=== PATIENT | male | born 1950 | race Caucasian/White ===

== ENCOUNTER → 2016-07-12 | Outpatient (CLI) | payer OTHER, BC ==
[~2016-07-12] MED LIST: ASPEC81 PO; CPR500 PO; HYDC25 PO; LISI-461 PO; SIMV20TA2 PO
[2016-07-12 12:26] LABS: BASO % 0.5 %; BASO ABS # 0.03 K/uL (0-0.2); COMPLETE YES; EOS % 4.1 %; IG% 0.2 %; LYMPH % 28.4 %; LYMPH ABS # 1.61 K/uL (1.2-3.4); MEAN CELL VOLUME 91.5 fL (80-100); MEAN CORPUSCULAR HEMOGLOBIN 32.8 pg (25-34); MEAN CORPUSCULAR HGB CONC 35.9 g/dl (32-36); MEAN PLATELET VOLUME 10.6 fL (7.4-10.4); NEUT % 54.8 %; PLATELET COUNT 189 K/uL (130-400); RED BLOOD COUNT 5.03 M/uL (4.7-6.1); WHITE BLOOD COUNT 5.67 K/uL (4.8-10.8)
[2016-07-12 12:28] LABS: URINE APPEARANCE CLEAR (CLEAR); URINE BILIRUBIN NEG (NEG); URINE COLOR YELLOW; URINE EPITHELIAL CELL AUTO 0-5 /lpf (0-5); URINE NITRITE NEG (NEG); URINE SPECIFIC GRAVITY 1.019 (1.000-1.030); UROBILINOGEN NEG (NEG); ZZUR CULT IF INDIC CLEAN CATCH NO
[2016-07-12 12:38] LABS: ALT/SGPT 26 U/L (12-78); BLOOD UREA NITROGEN 17 mg/dl (7-18); BUN/CREATININE RATIO 15.6 (10-20); CALCIUM 8.8 mg/dl (8.5-10.1); CARBON DIOXIDE 27 mmol/L (21-32); CHLORIDE 105 mmol/L (98-107); CHOLESTEROL 134 mg/dl (0-200); GLUCOSE 84 mg/dl (70-99); SODIUM 142 mmol/L (136-145)
[2016-07-12 12:41] LABS: ALB/GLOB RATIO 1.2 (0.9-2); ALKALINE PHOSPHATASE 85 U/L (45-117); AST/SGOT 24 U/L (15-37); CHOLESTEROL/HDL RATIO 2.6; HDL CHOLESTEROL 51 mg/dl; LDL CHOLESTEROL CALCULATED 63 mg/dl; TRIGLYCERIDES 101 mg/dl (0-150); VERY LOW DENSITY LIPOPROT CALC 20 mg/dl
[2016-07-12 12:41] LABS: MANUAL MICROSCOPIC REQUIRED? NO; REVIEW REQ? NO
== END | disposition home or self-care (01) ==
LOC: C.LABBFT 07:39
PROVIDERS: ATTEND Internal Medicine
DX: R97.20 Elevated prostate specific antigen [PSA] (principal); E78.5 Hyperlipidemia, unspecified

== ENCOUNTER → 2017-06-17 | Outpatient (CLI) | payer OTHER, BC ==
[2017-06-17 12:30] LABS: BASO % 0.3 %; BASO ABS # 0.02 K/uL (0-0.2); EOS % 2.2 %; EOS ABS # 0.13 K/uL (0-0.5); HEMATOCRIT 46.7 % (42-52); HEMOGLOBIN 16.7 g/dL (14.0-18.0); IG# 0.01 K/uL (0.00-0.02); LYMPH % 26.4 %; LYMPH ABS # 1.56 K/uL (1.2-3.4); MEAN CELL VOLUME 92.8 fL (80-100); MEAN CORPUSCULAR HEMOGLOBIN 33.2 pg (25-34); MEAN CORPUSCULAR HGB CONC 35.8 g/dl (32-36); MEAN PLATELET VOLUME 10.3 fL (7.4-10.4); MONO % 8.8 %; MONO ABS # 0.52 K/uL (0.11-0.59); NEUT % 62.1 %; NEUT ABS # 3.67 K/uL (1.4-6.5); PLATELET COUNT 171 K/uL (130-400); RED CELL DISTRIBUTION WIDTH CV 12.9 % (11.5-14.5); RED CELL DISTRIBUTION WIDTH SD 43.6 fL (36.4-46.3); WHITE BLOOD COUNT 5.91 K/uL (4.8-10.8)
[2017-06-17 13:00] LABS: ALBUMIN 3.7 gm/dl (3.4-5.0); ALT/SGPT 23 U/L (12-78); BLOOD UREA NITROGEN 19 mg/dl (7-18); CALCIUM 9.3 mg/dl (8.5-10.1); CARBON DIOXIDE 30 mmol/L (21-32); CHOLESTEROL 148 mg/dl (0-200); GLUCOSE 87 mg/dl (70-99); SODIUM 141 mmol/L (136-145)
[2017-06-17 13:03] LABS: ALKALINE PHOSPHATASE 71 U/L (45-117); AST/SGOT 23 U/L (15-37); LDL CHOLESTEROL CALCULATED 78 mg/dl
== END | disposition home or self-care (01) ==
LOC: C.LABBFT 08:53
PROVIDERS: ATTEND Internal Medicine
DX: I10 Essential (primary) hypertension (principal); E78.5 Hyperlipidemia, unspecified

== ENCOUNTER 2024-06-18 05:17 | Observation (INO) ==
--- NOTE | 2024-05-13 13:46 | PAT Medication Instructions ---
Medication Instructions Date of Service May 13, 2024 Home Medications Medication Instructions Recorded hydrochlorothiazide 25 mg tablet 25 mg PO QAM #90 tabs 07/31/23 diclofenac sodium 1 % topical gel 4 g topical QID PRN arthralgias 11/20/23 (Aleve (diclofenac)) #100 grams lorazepam 0.5 mg tablet 0.5 mg PO DAILY PRN anxiety #30 11/20/23 tabs lisinopril 10 mg tablet 10 mg PO .COMPLEX #180 tabs 01/26/24 simvastatin 20 mg tablet 20 mg PO QPM #90 tabs 04/27/24 finasteride 5 mg tablet 5 mg PO QAM famotidine 20 mg tablet 20 mg PO BID PRN heartburn alfuzosin 10 mg tablet,extended release 24 hr 10 mg PO QPM aspirin 81 mg tablet,delayed release (Deshaun Low Dose Aspirin) 81 mg PO QAM acetaminophen 325 mg tablet (Tylenol) 325 mg PO QID PRN Pain hydrochlorothiazide 25 mg tablet 25 mg PO QAM diclofenac sodium 1 % topical gel (Aleve (diclofenac)) 4 g topical QID PRN arthralgias lorazepam 0.5 mg tablet 0.5 mg PO DAILY PRN anxiety lisinopril 10 mg tablet 10 mg PO .COMPLEX simvastatin 20 mg tablet 20 mg PO QPM Continue as directed lorazepam 0.5 mg tablet 0.5 mg PO DAILY PRN anxiety (if needed) STOP taking 24 hours before surgery diclofenac sodium 1 % topical gel (Aleve (diclofenac)) 4 g topical QID PRN arthralgias DO NOT take the morning of surgery hydrochlorothiazide 25 mg tablet 25 mg PO QAM lisinopril 10 mg tablet 10 mg PO .COMPLEX Take morning of surgery With a small sip of water, OTHERWISE NOTHING TO EAT OR DRINK AFTER MIDNIGHT: finasteride 5 mg tablet 5 mg PO QAM famotidine 20 mg tablet 20 mg PO BID PRN heartburn (if needed) aspirin 81 mg tablet,delayed release (Deshaun Low Dose Aspirin) 81 mg PO QAM (unless surgeon directed otherwise) acetaminophen 325 mg tablet (Tylenol) 325 mg PO QID PRN Pain (if needed) Take evening before surgery famotidine 20 mg tablet 20 mg PO BID PRN heartburn (if needed) alfuzosin 10 mg tablet,extended release 24 hr 10 mg PO QPM acetaminophen 325 mg tablet (Tylenol) 325 mg PO QID PRN Pain (if needed) simvastatin 20 mg tablet 20 mg PO QPM Other Notes If you have any questions please call us at [phone] or [phone] or [phone] or [phone]
--- NOTE | 2024-05-20 09:38 | Anesthesiology Consultation ---
Date of Service May 20, 2024 Assessment & Plan (1) Encounter for pre-operative examination: - Infectious disease screening: Per assessment on 05/20/24- No known recent infectious disease contacts or current infectious disease symptoms. - Outpatient joint assessment: Pt currently scheduled for inpatient pathway. If surgeon requests review for outpatient joint pathway, patient is an acceptable candidate for outpatient joint program from anesthesia standpoint pending surgeon's office assessment that patient is motivated, has good support and completes Same Day Joint Program preop requirements. Chart Review Chart Review: Acceptable Risk for Surgery (pending CXR) and Patient seen in Pre Admission Testing Teaching & Discussion Pre-Anesthesia Teaching/Discussion Notes: Instructed NPO after midnight before surgery,except medications with 15 cc of water. Medication instructions provided according to the PAT guidelines. History Surgery Operation Date: 06/18/24 11:55 Proposed Procedures p Right Total Hip Arthroplasty Anterior - Paco Vences DO Height/Weight Height: 6 ft Weight: 82.7 kg Allergies Allergy/AdvReac Type Severity Reaction Status Date / Time No Known Drug Allergies Allergy Unknown Verified 05/13/24 10:19 Medications Home Medications Medication Instructions Recorded Confirmed Last Taken finasteride 5 mg tablet 5 mg PO QAM 07/28/18 05/13/24 10/28/21 famotidine 20 mg tablet 20 mg PO BID PRN heartburn 01/04/19 05/13/24 10/27/21 alfuzosin 10 mg tablet,extended 10 mg PO QPM 02/08/20 05/13/24 10/27/21 release 24 hr aspirin 81 mg tablet,delayed 81 mg PO QAM 12/03/20 05/13/24 10/28/21 release (Deshaun Low Dose Aspirin) acetaminophen 325 mg tablet 325 mg PO QID PRN Pain 10/28/21 05/13/24 10/28/21 08:00 (Tylenol) 325 mg hydrochlorothiazide 25 mg tablet 25 mg PO QAM #90 tabs 07/31/23 05/13/24 Unknown diclofenac sodium 1 % topical gel 4 g topical QID PRN arthralgias 11/20/23 05/13/24 Unknown (Aleve (diclofenac)) #100 grams lorazepam 0.5 mg tablet 0.5 mg PO DAILY PRN anxiety #30 11/20/23 05/13/24 Unknown tabs lisinopril 10 mg tablet 10 mg PO .COMPLEX #180 tabs 01/26/24 05/13/24 Unknown simvastatin 20 mg tablet 20 mg PO QPM #90 tabs 04/27/24 05/13/24 Unknown Past Medical History Medical History Arthritis BPH (benign prostatic hyperplasia) GERD (gastroesophageal reflux disease) History of COVID-19 (05/2023) Symptoms resolved HTN (hypertension) Hyperlipidemia Inguinal hernia Exercise / Class Metabolic Activity II 4-5 Yardwork/Stairs/Walk up hill (one FS: No CP, no SOB) Past Family History Family History Father Cancer Unknown primary- age 87. Mother Parkinsons disease Sister Hypertension Other No family history of adverse response to anesthesia No pertinent family history Denies family history of Ovarian cancer Prostate cancer Myocardial infarction Breast cancer Colorectal cancer Past Surgical History Surgical History H/O cataract extraction Right eye History of colonoscopy History of hand surgery Finger fracture repair (2017) History of prostate biopsy x2 ("benign") History of surgery For dupuytren's contracture History of tonsillectomy History of tooth extraction Past Anesthesia History No Hx of Anesthesia Complications and No Family Hx of Anesthesia Complications History of PONV No Hx of PONV and Hx of Motion Sickness Social History Smoking Status: Never smoker Do You Dip or Chew Tobacco: No Hx Alcohol Use: Yes alcohol intake frequency: 0-2 drinks per day (2 drinks/day) Hx Substance Use: No substance use type: does not use Review of Systems Patient denies chest pain, shortness of breath, dyspnea on exertion, fever, chills, cough, wheezing. Physical Exam Vital Signs BP 124/75 P 67 TEMP 97.8 SP02 98%RA RESP 16 Physical Full cervical extension range of motion. Full TMJ range of motion. TMD > 3.5 finger breaths Mallampati Score III Dentition: missing molar, + crown Lungs: clear throughout to auscultation Cardiac: regular rate and rhythm, no murmurs noted Spine: normal Carotid arteries: negative bruit Extremities: no LE edema Lab Results Anesthesia Preop Results Results Anesthesia Widget: WBC 5.42 K/ul (4.8-10.8) 05/20/24 Hgb 15.5 g/dl (14.0-18.0) 05/20/24 Hct 43.5 % (42.0-52.0) 05/20/24 Plt 189 K/uL (130-400) 05/20/24 Na 141 mmol/L (136-145) 05/20/24 K 4.1 mmol/L (3.5-5.1) 05/20/24 Cl 107 mmol/L (98-107) 05/20/24 CO2 26 mmol/L (21-32) 05/20/24 BUN 26 mg/dl (6-23) H 05/20/24 Creat 1.07 mg/dl (0.6-1.4) 05/20/24 Glucose Level 96 mg/dl (70-99(Fasting)) 05/20/24 PT 11.7 Seconds (9.0-12.0) 05/20/24 PTT 26 Seconds (21-31) 05/20/24 INR 1.1 (0.9-1.1) 05/20/24 Blood Type O Positive 05/20/24 Antibody Screen NEGATIVE 05/20/24 Testing Electrocardiogram Date: 05/20/24 NSR at 62bpm. Rightward axis. iRBBB. Septal infarct (cited on or before 04/28/2018). Echocardiogram Date: 08/22/20 EF 60-65%. Normal wall motion. Mild cLVH. Mild TR. Grade I DD.
--- NOTE | 2024-06-17 13:13 | History & Physical Report ---
Date of Service June 17, 2024 Assessment & Plan (1) Arthritis of right hip: We will proceed with a right anterior total of arthroplasty. Postoperatively he will be started on aspirin for DVT prophylaxis and kept overnight in the hospital for postop medical management. He plans to use energy physical therapy upon discharge. History of Present Illness Chief Complaint: Arthritis of the right hip. Primary Care Provider: Greg Keyes MD Lupillo is a pleasant 74-year-old male who has been dealing with chronic increasing right hip pain. He hasbeen seeing one of my partners. He isstruggling more with his hip. He hasbeen diagnosed with advanced arthritis. He hasbeen limping a lot over the last year. He ishaving trouble sleeping at night. He had an injection with minimal relief. He did physical therapy back in June without relief. After failing conservative treatment, he has elected to proceed with a right anterior total arthroplasty. Allergies Allergy/AdvReac Type Severity Reaction Status Date / Time No Known Drug Allergies Allergy Unknown Verified 05/13/24 10:19 Home Medications Medication Instructions Recorded Confirmed Type finasteride 5 mg tablet 5 mg PO QAM 07/28/18 05/13/24 History famotidine 20 mg tablet 20 mg PO BID PRN heartburn 01/04/19 05/13/24 History alfuzosin 10 mg tablet,extended 10 mg PO QPM 02/08/20 05/13/24 History release 24 hr aspirin 81 mg tablet,delayed 81 mg PO QAM 12/03/20 05/13/24 History release (Deshaun Low Dose Aspirin) acetaminophen 325 mg tablet 325 mg PO QID PRN Pain 10/28/21 05/13/24 History (Tylenol) hydrochlorothiazide 25 mg tablet 25 mg PO QAM #90 tabs 07/31/23 05/13/24 Rx diclofenac sodium 1 % topical gel 4 g topical QID PRN arthralgias 11/20/23 05/13/24 Rx (Aleve (diclofenac)) #100 grams lorazepam 0.5 mg tablet 0.5 mg PO DAILY PRN anxiety #30 11/20/23 05/13/24 Rx tabs lisinopril 10 mg tablet 10 mg PO .COMPLEX #180 tabs 01/26/24 05/13/24 Rx simvastatin 20 mg tablet 20 mg PO QPM #90 tabs 04/27/24 05/13/24 Rx Past Med/Surg History Problem List Arthritis of right hip Encounter for pre-operative examination GERD (gastroesophageal reflux disease) (Acute) Benign prostatic hyperplasia with elevated prostate specific antigen (PSA) (Chronic) Elevated prostate specific antigen (PSA) (Acute) Hyperlipidemia (Chronic) Hypertension (Chronic) Inguinal hernia (Acute) Male erectile disorder of organic origin (Acute) Medical History Inguinal hernia HTN (hypertension) Hyperlipidemia BPH (benign prostatic hyperplasia) GERD (gastroesophageal reflux disease) Arthritis History of COVID-19 (05/2023) Symptoms resolved Surgical History History of surgery For dupuytren's contracture History of prostate biopsy x2 ("benign") History of colonoscopy History of tooth extraction H/O cataract extraction Right eye History of tonsillectomy History of hand surgery Finger fracture repair (2018) Family History Father Cancer Unknown primary- age 87. Mother Parkinsons disease Sister Hypertension Other No family history of adverse response to anesthesia No pertinent family history Denies family history of Ovarian cancer Prostate cancer Myocardial infarction Breast cancer Colorectal cancer Social History Smoking Status: Never smoker Second Hand Exposure: No; Do You Dip or Chew Tobacco: No; Tobacco Cessation Education Requested by Patient: No Hx Alcohol Use: Yes Alcohol type: beer Alcohol type Comment: about 2 drinks per night. Hx Substance Use: No Preferred Language: Djib[place]ian Communication Ability: Effective Visual Impairment: No Limitations Hearing Ability: Normal Molder Vacuum Required: No Beliefs That Will Affect Care: None marital status: Single Current Living Situation: Alone current occupational status: retired current occupation: [employer], retired 2010 Other Information That Helps Us Care for You: No Feels Safe at Home: Yes Safety Concerns: Feels Safe At This Time Childhood Exposure to Second-Hand Smoke: No Diet: regular caffeine: Yes Dental Care, Regularly: Yes Physical Activity Frequency: 3-4 Times per Week Physical Activity Frequency Comment: walks, outdoor work, 30 mins Seatbelt Use: always Sunscreen Use: No Assistive Devices: Glasses Review of Systems All systems reviewed & are unremarkable except as noted in HPI & below. Physical Exam On physical exam of the right hip, he has decreased range of motion. He has pain with internal/external rotation. All of his pain is located in the groin.. Constitutional WD/WN, vitals as above Eyes PERRL, conjunctivae normal, anicteric sclerae ENMT external ear and nose normal, oropharynx normal Neck trachea midline, no thyromegaly Respiratory normal respiratory effort Cardiovascular RRR, no murmur, no edema Gastrointestinal (Abdomen) normal bowel sounds, soft, nontender, no hepatosplenomegaly Psychiatric A+Ox3, euthymic affect Results & Data Results & Data Laboratory Results . Diagnostic Findings X-rays of the right hip show advanced osteoarthritis with joint space narrowing, osteophyte formation, and [id number] articulation. PG Care Time/CCT Total # of Minutes Spent Total Time Spent with Patient: Total time spent is greater than 50% in coordination of care (as documented) at patient's floor/unit and/or counseling patient: Coding Level of Care Code None Diagnoses Arthritis of right hip M16.11
[2024-06-18] MEDS: LR 500ML BOLUS, THEN 15ML/HR IV SCH (06:00)
[2024-06-18] MEDS: GABAPENTIN 300 MG CAP PO SCH (06:05)
[2024-06-18] MEDS: FAMOTIDINE 20 MG TAB PO SCH (06:05)
[2024-06-18] MEDS: dexAMETHasone**PF** 10 MG/ML VIAL IV SCH (06:05)
[2024-06-18] MEDS: ACETAMINOPHEN 500 MG TAB PO SCH ×2 (06:05→15:16)
[2024-06-18] MEDS: LR 60ML/HR IV SCH (06:06)
[2024-06-18] MEDS ORDERED: BUPIVACAINE 0.5 % 5 MG/1 ML PF 10ML VIAL ONE (06:19)
[2024-06-18] MEDS ORDERED: MIDAZOLAM HCL 1 MG/ML 2ML VIAL ONE (06:36)
[2024-06-18] MEDS ORDERED: PHENYLEPHRINE HCL 10 MG/ML VIAL ONE (06:38)
--- NOTE | 2024-06-18 06:38 | History & Physical Bridge Note ---
Date of Service June 18, 2024 History & Physical Bridge Note I have examined the patient, reviewed the History & Physical and in the interval since the performance of the History & Physical I have noted the following changes of clinical significance: no changes noted
[2024-06-18] MEDS ORDERED: PROPOFOL IV EMULSION 10 MG/ML 20 ML VIAL IV ONE (06:40)
[2024-06-18] MEDS ORDERED: ONDANSETRON INJ 2 MG/ML 2 ML VIAL ONE (06:46)
[2024-06-18] MEDS ORDERED: LIDOCAINE 2% 2 ML VIAL/AMP(20MG/ML) INFIL ONE (06:47)
[2024-06-18] MEDS: TRANEXAMIC ACID 1,000 MG **IV Pre-op IV SCH (06:53)
[2024-06-18] MEDS ORDERED: fentaNYL citrate PF 100 MCG/2 ML VIAL ONE (06:59)
[2024-06-18] MEDS ORDERED: ePHEDrine sulfate 50 MG/ML AMP IV PRN (07:05)
[2024-06-18] MEDS ORDERED: ONDANSETRON INJ 2 MG/ML 2 ML VIAL IV PRN ×2 (07:05→09:39)
[2024-06-18] MEDS ORDERED: PROMETHAZINE HCL 6.25 MG in SODIUM CHLORIDE 0.9% 50 ML IV PRN (07:05)
[2024-06-18] MEDS ORDERED: fentaNYL citrate PF 100 MCG/2 ML VIAL IV PRN (07:05)
[2024-06-18] MEDS: ceFAZolin 2000MG 2,000 MG/15 ML SYR IV SCH (07:05)
[2024-06-18] MEDS ORDERED: ATROPINE SULFATE 0.1 MG/ML 10ML SYR IV PRN (07:05)
[2024-06-18] MEDS ORDERED: ePHEDrine sulfate 50 MG/ML AMP ONE (07:36)
[2024-06-18] MEDS: TRANEXAMIC ACID 1,000 MG **IV Intra-op IV SCH (07:58)
[2024-06-18] MEDS: ORTHO JOINT ANESTHETIC ONE (08:01)
[2024-06-18] MEDS: ROPIV 0.5% 246mg, Ketorolac 30mg, EPINEPHrine 0.5mg in NSS INFIL SCH (08:01)
--- NOTE | 2024-06-18 08:04 | Operative Report ---
PG Post Operative Report Pre & Post Diagnosis Operation Date: 06/18/24 07:00 Pre-Op Diagnosis: Rigth Hip Arthrtitis Post-Op Diagnosis: Rigth Hip Arthrtitis I identified the patient and participated in the time-out.: Yes Procedure Operation Date: 06/18/24 07:00 Actual Procedures p Right Anterior Total Hip Arthroplasty(Right) - Paco Vences DO Surgeon Paco Vences DO Home Health Care Respiratory Therapist Rogerio Porras PA-C Estimated Blood Loss 200 Findings Consistent with Post-Op Diagnosis Specimens Right femoral head Description of Procedure Implants used I used a ZimmerBiomet total hip arthroplasty system with a size 5 high offset Avenir Complete stem, a 56 mm G7 cup with a 25mm screw, an E1 polyethylene liner, a 40 mm ceramic head with a +3.5 neck. Lupillo arrived at the hospital for the above procedure. He was seen in the preoperative holding area and the operative extremity was identified and signed. He was given a spinal anesthetic, a preoperative antibiotic, and TXA. He was then taken back to the operating room and laid on the table in the supine position. He was given basic sedation. The operative leg was secured to a Puristst leg positioner. The hip was then prepped and draped in sterile fashion. A timeout was done and the patient and the operative extremity was properly identified. An anterior approach was used. Dissection was taken down through the fascia and the tensor muscle belly was retracted laterally and the rectus was retracted medially. The circumflex vessels were identified and ligated. The capsule was then incised and tagged for later repair. The femoral neck was then cut and the femoral head was removed. The acetabulum was exposed. Time was spent doing a complete circumferential labral release. Sequential reaming of the acetabulum up to a size 55 reamer was done. Final reamings were done under fluoroscopy to ensure appropriate version. A Biomet 56 mm G7 cup was then impacted into place. A single 25 mm screw was placed. The E1 polyethylene liner was then snapped into place. Surrounding soft tissues were then injected with 100 cc of an orthopedic pain control cocktail. The proximal femur was then exposed. Sequential broaching up to a size 5 broach was done. Off that broach a size 40 head with a +3.5 neck was trialed. The hip was reduced and fluoroscopic images showed anatomic alignment of the implants in acceptable length. The broach was removed. The final size 5 high offset Avenir Complete stem was then impacted into place. A ceramic 40 mm head with a +2.5 neck was then impacted onto the stem and the hip was reduced. Final fluoroscopic images showed anatomic alignment of the hip. The capsule was then closed with #1 Vicryl suture. A dilute betadyne lavage was then done for 3 minutes. The joint was then irrigated with normal saline solution. The fascia was closed with #1 PDS suture. Skin was closed with 2-0 Vicryl, sj, and a Silverlon dressing. He was then transferred to a hospital bed and taken to the post anesthesia care unit in stable condition. He tolerated the procedure well. Rogerio Porras PA-C, was present for the entire procedure. He was critical for patient positioning, prepping, draping, retraction exposure, wound closure and application of sterile dressing. I attest to the content of the Intraoperative Record and any orders documented therein. Any exceptions are noted below.
--- NOTE | 2024-06-18 08:46 | Fluoroscopy Report ---
FL hip RT 1V CLINICAL HISTORY: RT ANTERIOR MYNOR TECHNIQUE: 1 views were obtained with the C-arm in the OR with the above procedure. Total fluoroscopy time was 8.3 seconds. Radiation dose was 2 mGy. Comparison: Comparison is made to hip radiograph 05/23/2023 FINDINGS/IMPRESSION: Intraoperative images were obtained of the right anterior arthroplasty. Please correlate with intraoperative fluoroscopy and operative report. ACT 112: Negative or not required by law. Electronically signed by: Kyler Sims M.D. 06/18/2024 8:44 AM
--- NOTE | 2024-06-18 09:12 | XRay Report ---
XR hip 1V RT w pelvis HISTORY: 74 years-old Male IN PACU - Post Surgical COMPARISON: Hip radiograph 05/23/2023 TECHNIQUE: AP view the pelvis with crosstable lateral view of the right hip FINDINGS: Moderate osteoarthritis of the left hip. Satisfactory alignment of the right hip arthroplasty with la teral skin sj, expected postoperative soft tissue swelling with deep tissue air. IMPRESSION: Satisfactory alignment of the right hip arthroplasty. ACT 112: Negative or not required by law. The above report was generated using voice recognition software. It may contain grammatical, syntax o r spelling errors. Electronically signed by: Gavin Kaur M.D. 06/18/2024 9:10 AM
--- NOTE | 2024-06-18 09:16 | Anesthesiology Progress Note ---
Date of Service June 18, 2024 Anesthesia Post Procedure Vital Signs Vital Signs: Temp Pulse Resp BP Pulse Ox O2 Del Method O2 Flow Rate 06/18/24 09:05 86 14 114/60 95 Room Air 06/18/24 08:55 83 14 120/60 95 Room Air 06/18/24 08:45 90 16 104/67 97 Room Air 06/18/24 08:35 92 H 16 112/58 L 97 Oxymask 5 06/18/24 08:26 36.3 C L 93 H 18 119/60 97 Oxymask 5 06/18/24 05:43 36.9 C 94 H 18 144/81 H 94 Room Air Transfer of Care Handoff Completed per policy Notes Mental Status: alert / awake / arousable Patient Amnestic to Procedure: Yes Nausea / Vomiting: adequately controlled Pain: adequately controlled Airway Patency, RR, SpO2: stable & adequate BP & HR: stable & adequate Hydration State: stable & adequate Neuraxial Anesthesia: was administered and sensory block is resolving Anesthetic Complications: no major complications apparent and Pt Satisfied with anesthetic care
[2024-06-18] MEDS ORDERED: METOCLOPRAMIDE HCL INJ 5 MG/ML 2 ML VIAL IV PRN (09:39)
[2024-06-18] MEDS ORDERED: traMADol HCL 50 MG TABLET PO PRN (09:39)
[2024-06-18] MEDS ORDERED: HYDROmorphone INJ 0.5 MG/0.5 ML SYR IV PRN (09:39)
[2024-06-18] MEDS ORDERED: bisacodyL 10 MG SUPP PR PRN (09:39)
[2024-06-18] MEDS ORDERED: FAMOTIDINE 20 MG TAB PO PRN (09:39)
[2024-06-18] MEDS ORDERED: MAGNESIUM HYDROXIDE SUSP 30 ML UDC PO PRN (09:39)
[2024-06-18] MEDS ORDERED: oxyCODONE HCL IR 5 MG TAB (IMMEDIATE RELEASE) PO PRN (09:39)
[2024-06-18] MEDS ORDERED: NALOXONE HCL 0.4 MG/1 ML VIAL/CARP IV PRN (09:39)
[2024-06-18] MEDS: KETOROLAC TROMETHAMINE 15 MG/ML VIAL IV SCH (10:45)
[2024-06-18] MEDS: MULTIVITAMIN TAB PO SCH (10:45)
[2024-06-18] MEDS: ASPIRIN 81 MG ECTAB PO SCH (10:45)
[2024-06-18] MEDS: DOCUSATE SODIUM 100 MG CAP PO SCH (10:45)
[2024-06-18] MEDS: hydroCHLOROthiazide 25 MG TAB PO SCH (10:45)
[2024-06-18] MEDS: FINASTERIDE 5 MG TAB PO SCH (11:13)
[2024-06-18] MEDS: ceFAZolin 1000MG 1,000 MG/7.5 ML SYR IV SCH (15:16)
[2024-06-18] MEDS: lisinopril 10 MG TAB PO SCH (16:22)
[2024-06-18] MEDS: TAMSULOSIN HCL 0.4 MG CAP PO SCH (20:36)
[2024-06-18] MEDS: SIMVASTATIN 20 MG TAB PO SCH (20:36)
[2024-06-18] MEDS: SENNA 8.6 MG TAB PO SCH (20:38)
[2024-06-19] MEDS: LORazepam 0.5 MG TAB PO PRN (00:05)
[2024-06-19 03:32] VITALS: PULSE 71; TEMP 97.9
[2024-06-19 07:23] VITALS: BP 118/65; RESP 16; O2SAT 98
--- NOTE | 2024-06-19 07:27 | Orthopedic Progress Note ---
Date of Service June 19, 2024 Assessment & Plan (1) Status post right hip replacement: Overall he is doing very well. He is not having much pain in the right hip. He has been up and ambulating to the bathroom. He will be seen by physical therapy today for ambulation and range of motion exercises. He is on aspirin for DVT prophylaxis. He can be discharged to home later today. He will follow-up with orthopedics in 2 weeks. Bebo Wesley was seen and examined at bedside this morning. Overall he is doing fairly well. He is not having too much pain in the right hip. He is been up and ambulating to the bathroom. He has no complaints.. Review of Systems All systems reviewed & are unremarkable except as noted in HPI & below. Physical Exam On physical exam of the right hip, the dressing is clean and dry. His leg is out full extension. He has active dorsiflexion plantarflexion of his right ankle.. Results & Data Results & Data Laboratory Results . Diagnostic Findings Postoperative x-rays of the right hip show the prosthesis to be in anatomic alignment without any evidence of fracture complication, or loosening.. PG Care Time/CCT Total # of Minutes Spent Total Time Spent with Patient: Total time spent is greater than 50% in coordination of care (as documented) at patient's floor/unit and/or counseling patient: Coding Level of Care Code 06519 Post Operative Follow-Up Diagnoses Status post right hip replacement Z96.641
--- NOTE | 2024-06-19 07:28 | Discharge Summary ---
Date of Service June 19, 2024 Admission HPI (Per Admitting) Lupillo is a pleasant 74-year-old male who has been dealing with chronic increasing right hip pain. He hasbeen seeing one of my partners. He isstruggling more with his hip. He hasbeen diagnosed with advanced arthritis. He hasbeen limping a lot over the last year. He ishaving trouble sleeping at night. He had an injection with minimal relief. He did physical therapy back in June without relief. After failing conservative treatment, he has elected to proceed with a right anterior total arthroplasty. Admission Exam (Per Admitting) On physical exam of the right hip, he has decreased range of motion. He has pain with internal/external rotation. All of his pain is located in the groin.. Principal Diagnosis Same as "Discharge Diagnosis" noted below under Discharge Instructions. Discharge Exam On physical exam of the right hip, the dressing is clean and dry. His leg is out full extension. He has active dorsiflexion plantarflexion of his right ankle.. Discharge Data Procedures Performed Operation Date: 06/18/24 07:00 Actual Procedures p Right Anterior Total Hip Arthroplasty(Right) - Paco Vences DO Ordered Studies 06/18/24 07:00 FL hip RT 1V Routine Hospital Course (1) Status post right hip replacement: On June 18, 2024 Lupillo arrived at [facility] and underwent a right hip replacement without complication. He had a spinal anesthetic. Postoperatively he was started on aspirin and transferred to the general orth opedic floors. His hospital course was uneventful. On postop day #1, his vital signs were stable and his pain was well-controlled. He was able to participate well with physical therapy doing ambulation and range of motion exercises. He was then discharged to home. He will follow-up with orthopedics in 2 weeks. PG Care Time/CCT Total # of Minutes Spent Total Time Spent with Patient: Total time spent is greater than 50% in coordination of care (as documented) at patient's floor/unit and/or counseling patient: Discharge Plan Discharge Items Patient Disposition: Home - Self-Care Reason For Visit: Rigth Hip Arthrtitis Discharge Diagnosis: Right hip replacement Activity: Per Instructions section Non-emergency contact: Surgeon Call non-emergency contact if: your wound has increased redness and your wound has increased drainage Follow-up/Referrals: Greg Keyes MD [Primary Care Provider] - Diet: Regular Addtl Attending Provider Instructions: Activity and Therapy Recommendations: * If you are using [facility] then therapy will be provided at your home until they feel you have accomplished all of your goals. * If you are using [facility] then Physical Therapy will be provided until they feel you are ready to start Outpatient Physical Therapy. * If you are not using home therapy then Outpatient Physical Therapy should start about 3-5 days from your day of surgery. Therapy will last about 6-10 weeks * You were shown a series of exercises in the hospital. Do these exercises three times each day including the exercises you were shown in physical therapy. * Get up and walk several times each day.~ For the first four weeks, try not to stand or walk for more than one hour at a time. If you do stand or walk for more than one hour, you will not hurt anything, but your leg will likely swell.~~ * As you feel comfortable, you may change from the walker or crutches to a cane and~then to independent walking. Medications: * Narcotic You will likely be sent home from the hospital with a prescription for the narcotic pain medication that worked best throughout your stay. * Cefadroxil -take the antibiotic twice a day for 10 days to help prevent infection. * Aspirin Most patients will be required to take Aspirin 81mg twice a day for 6 weeks after surgery. This is obtained [id number] and a prescription is not necessary. * Other medications may be prescribed for specific circumstances. If you have any questions, please call the office at . * Resume previous home medications unless otherwise instructed TEDs/Elastic Stockings: The white elastic stockings help limit swelling and prevent blood clots from forming in your legs. The more you wear them, the more they work. Wear them for six weeks. Dressing Care: Leave the Silverlon dressing in place for 7 days. After 7 days you may remove the dressing. If the incision is not draining then you may leave the sj open to air. If there is a little bit of drainage or if the sj are getting stuck on your clothing then cover the incision with a dry dressing. The sj will be removed at your 2 week follow-up appointment. Showering: You may shower with the Silverlon dressing in place. Do not let the shower spray hit the dressing directly. Pat the Silverlon dressing dry. If the dressing becomes wet underneath, then simply remove the dressing. Keep the incision dry until you are 7 days out from the day of surgery. After 7 days you may remove the Silverlon dressing and shower with the sj exposed. Let soapy water run over the sj and pat them dry. Do not scrub or soak the incision. Diet: You may resume your previous diet. Things To Watch For: * Drainage from the incision site that occurs more than one week after your surgery. * Increased redness at the incision site. * Fever above 102 degrees Fahrenheit. * Unusual chest pain or shortness of breath. * Call [facility] at with any of the above problems Follow-Up Visit: Follow-up with Dr. Vences's office 2-3 weeks after your day of surgery. We will remove your sj and answer any questions. If you have any additional questions or concerns, Dr Vences is usually in the o ffice at the same time and will be available An appointment was probably scheduled when you signed-up for surgery in the office. If you have any questions call Office Instructions: More detailed instructions as well as Frequently Asked Questions were provided in a folder by our office when you signed-up for surgery. Please review these instructions when you get home. If you have any further questions or concerns, please feel free to call the office at [phone] Pending Studies at Discharge: No Stand-Alone Forms: My [facility], Smoking Cessation Medications and DC Order Prescriptions: New cefadroxil 500 mg capsule 500 mg PO BID 10 Days Qty: 20 0RF oxycodone 5 mg tablet 5 mg PO Q6H PRN (Reason: pain) Qty: 30 0RF Continued hydrochlorothiazide 25 mg tablet 25 mg PO QAM Qty: 90 3RF lisinopril 10 mg tablet 10 mg PO .COMPLEX Qty: 180 3RF Rx Instructions: 10 mg orally 2 tabs p.o. every morning and 1 p.o. every afternoon; simvastatin 20 mg tablet 20 mg PO QPM Qty: 90 3RF famotidine 20 mg tablet 20 mg PO BID PRN (Reason: heartburn) alfuzosin 10 mg tablet extended release 24 hr 10 mg PO QPM Rx Instructions: administer after the same meal each day diclofenac sodium [Aleve (diclofenac)] 1 % gel 4 g topical QID PRN (Reason: arthralgias) Qty: 100 2RF Rx Instructions: apply to single knee, ankle, foot; for foot includes sole/toes/top of foot lorazepam 0.5 mg tablet 0.5 mg PO DAILY PRN (Reason: anxiety) Qty: 30 0RF finasteride 5 mg Tablet 5 mg PO QAM acetaminophen [Tylenol] 325 mg Tablet 325 mg PO QID PRN (Reason: Pain) Changed aspirin [Deshaun Low Dose Aspirin] 81 mg Tablet,Delayed Release (Dr/Ec) 81 mg PO BID 42 Days Qty: 0 0RF Discharge Orders: Discharge Order (Routine); Ordered 06/19/24 Ordered By: Paco Vences Admission Data Admit Date/Time: 06/18/24 08:29 Attending Provider: Paco Vences Admit Provider: Paco Vences Primary Care Provider: Greg Keyes
[2024-06-19] MEDS: dexAMETHasone 4 MG TAB PO SCH (08:06)
[2024-06-19] MEDS: lisinopril 20 MG TAB PO SCH (08:07)
== END 2024-06-19 09:54 | disposition home or self-care (01) ==
LOC: 3E 05:17 → ASU 05:17